=== PATIENT | female | born 1930 | race Caucasian/White ===

== ENCOUNTER 2016-08-29 18:04 | Emergency (ER) | payer MEDICARE ==
[~2016-08-29 18:04] MED LIST: ALEVE220 MG PO; AVAP150 PO; B COMPLETE PO; CARD120 PO; DIL2TAB PO; GAVISCO2 PO; GENTEAL 15 ML O15 ML OPH; LIPITOR10 PO; MAGIC MOUTHWASH PO; MULTIVIT/MIN PO; NORCO1 TA1 PO; NORV5 PO; ORAZINC110 MG PO; PROTONIX20 MG PO; SUPER B-100 PO; SYN.15 PO; V5 PO; VYTORIN 10/40 T1 TAB PO; ZESTORETIC PO; ZOFRAN4 PO
== END 2016-08-29 18:25 | disposition home or self-care (01) ==
LOC: ER 18:04
DX: K64.9 Unspecified hemorrhoids (principal); I10 Essential (primary) hypertension; K21.9 Gastro-esophageal reflux disease without esophagitis; Z90.49 Acquired absence of other specified parts of digestive tract; Z88.1 Allergy status to other antibiotic agents; Z88.5 Allergy status to narcotic agent; Z88.8 Allergy status to other drugs, medicaments and biological substances; Z91.09 Other allergy status, other than to drugs and biological substances; Z79.899 Other long term (current) drug therapy
CPT/HCPCS: 99283